=== PATIENT | male | born 1925 | race Caucasian/White ===

== ENCOUNTER 2016-06-25 20:26 | Inpatient (IN) | payer OTHER, MEDICARE ==
[~2016-06-25] VITALS: Ht 182.9 cm; Wt 68.1 kg
[~2016-06-25 20:26] MED LIST: ADULT LOW DOSE81 M1 PO; ADVIL200 MG PO; ANCEF,KEFZ1 GM/50 ML IV; ASPIR-LOW81 MG PO; CENTRAVITES 501 EACH PO; COLACE100 MG PO; COUMADIN5 MG PO; DOCUSATE SODIU100 MG PO; DUONEB 2.5-0.5 M3 ML PEP; FUROSEMIDE40 MG PO; Flomax PO; K-DUR20 MEQ PO; LIDOCAINE700 MG TD; LISINOPRIL10 MG PO; LOVENOX100 MG/1 M SC; Levothroid,Synthroid PO; MELATIN3 MG PO; MEN'S MULTI-VI1 EACH; MEN'S MULTI-VI1 EACH PO; MIDODRINE HCL5 MG PO; NORCO 5/3251 TABLET PO; OXYCODONE HCL5 MG PO; POLYETHYLENE GL17 GM PO; PRINIVIL10 MG PO; PROSCAR5 MG PO; SANTYL30 GM TP; SIMVASTATIN40 MG PO; SYNTHROID150 MCG PO; TRAMADOL HCL50 MG PO; TYLENOL REGULA325 MG PO; Tylenol Extra Streng PO; ULTRAM50 MG PO; VITAMIN D31000 UNI2 PO; Zestril,Prinivil PO
[2016-06-25 20:59] LABS: EOSINOPHIL (%) 2.3 % (0-5); EOSINOPHIL COUNT 0.2 K/uL (0-0.3); HEMATOCRIT 35.2 % (38.0-50.0); IMMATURE GRANULOCYTE (%) 0.5 % (0.0-0.7); IMMATURE GRANULOCYTE COUNT 0.1 K/uL; INSTRUMENT ABS NEUTROPHIL CT 7.6 K/uL; MCH 27.5 PG (29.0-34.0); MCHC 31.8 G/DL (30.0-36.0); MCV 86.5 FL (86-99); MEAN PLAT.VOLUME 9.1 uM^3 (9.0-12.4); MONOCYTE (%) 7.3 % (3-12); MONOCYTE COUNT 0.7 K/uL (0-0.8); NEUTROPHIL (%) 78.9 % (45-76); NEUTROPHIL COUNT 7.6 K/uL (1.8-6.4); PLATELET COUNT 310 K/uL (156-360); RBC DIS.WIDTH-CV 15.9 % (11.8-14.6); RBC DIS.WIDTH-SD 50.5 % (39-53); RED BLOOD COUNT 4.07 M/uL (4.00-5.50)
[2016-06-25 21:01] LABS: WHITE BLOOD COUNT 9.6 K/uL (4.1-10.2)
[2016-06-25 21:10] LABS: CHLORIDE 109 mEq/L (99-109); POTASSIUM 3.7 mEq/L (3.7-5.4); SODIUM 140 mEq/L (136-147)
[2016-06-25 21:13] LABS: GLUCOSE 111 mg/dL (70-99)
[2016-06-25 21:14] LABS: ANION GAP 11 MEQ/L (2-14); TOTAL BILIRUBIN 0.4 mg/dL (0.0-1.0)
[2016-06-25 21:16] LABS: ALKALINE PHOSPHATASE 93 IU/L (3-129); GFR ESTIMATE (CALCULATED) > 59 mL/min/
[2016-06-25 21:17] LABS: UREA NITROGEN (BUN) 20 mg/dL (9-23)
[2016-06-25 21:18] LABS: DIRECT BILIRUBIN 0.2 mg/dL (0.0-0.3)
[2016-06-25 21:18] LABS: INTER. NORMALIZED RATIO 2.6; PROTHROMBIN TIME 27.3 (9.2-11.2); PTT 46.7 (25-32)
[2016-06-25 21:19] LABS: TROP-I INTERPRETATION NEGATIVE; TROPONIN-I 0.01 ng/mL (0.0-0.30)
[2016-06-25 21:20] LABS: LIPASE 13 U/L (1.0-51.0)
[2016-06-26] MEDS ORDERED: SERTRALINE HCL100 MG PO (00:29)
[2016-06-26] MEDS ORDERED: MIRTAZAPINE15 MG PO (00:29)
[2016-06-26] MEDS ORDERED: ATORVASTATIN CA20 MG PO (00:29)
[2016-06-26] MEDS ORDERED: LEVO-T200 MCG PO (00:29)
[2016-06-26] MEDS ORDERED: LEVO-T25 MCG PO (00:30)
[2016-06-26] MEDS ORDERED: ASCORBIC ACID500 M3 PO (00:31)
[2016-06-26] MEDS ORDERED: TAMSULOSIN HCL0.4 MG PO (00:31)
[2016-06-26] MEDS ORDERED: DAILY VALUE1 EACH PO (00:31)
[2016-06-26] MEDS ORDERED: VITAMIN D31000 UNI2 PO (00:32)
[2016-06-26] MEDS ORDERED: FINASTERIDE5 MG PO (00:32)
[2016-06-26] MEDS ORDERED: PROTONIX40 MG PO (00:33)
[2016-06-26] MEDS ORDERED: FERROUS SULFAT325 MG PO (00:33)
[2016-06-26] MEDS ORDERED: FUROSEMIDE20 MG PO (00:33)
[2016-06-26] MEDS ORDERED: POTASSIUM CHLO20 ME1 PO (00:34)
[2016-06-26] MEDS ORDERED: MIDODRINE HCL5 MG PO (00:34)
[2016-06-26] MEDS ORDERED: COUMADIN4 MG PO (00:35)
[2016-06-26 02:50] VITALS: BP 100/53
[2016-06-26 06:35] LABS: INTER. NORMALIZED RATIO 2.2; PROTHROMBIN TIME 23.3 (9.2-11.2)
[2016-06-26 08:51] LABS: INTERNAL CONTROL VALID? YES
[2016-06-26 09:51] VITALS: BP 88/42
[2016-06-26 12:42] VITALS: BP 95/55
[2016-06-26 16:02] VITALS: BP 106/50
[2016-06-26 20:05] VITALS: BP 110/54
[2016-06-26 23:45] VITALS: BP 102/51
[2016-06-27 03:50] VITALS: BP 112/84
[2016-06-27 07:09] LABS: EOSINOPHIL (%) 7.2 % (0-5); EOSINOPHIL COUNT 0.5 K/uL (0-0.3); HEMATOCRIT 30.7 % (38.0-50.0); IMMATURE GRANULOCYTE (%) 0.4 % (0.0-0.7); INSTRUMENT ABS NEUTROPHIL CT 3.6 K/uL; LYMPHOCYTE COUNT 2.2 K/uL (1.0-2.8); MCH 27.5 PG (29.0-34.0); MCHC 30.9 G/DL (30.0-36.0); MCV 88.7 FL (86-99); MEAN PLAT.VOLUME 9.6 uM^3 (9.0-12.4); MONOCYTE (%) 10.3 % (3-12); MONOCYTE COUNT 0.7 K/uL (0-0.8); NEUTROPHIL COUNT 3.6 K/uL (1.8-6.4); PLATELET COUNT 262 K/uL (156-360); RBC DIS.WIDTH-CV 15.9 % (11.8-14.6); RBC DIS.WIDTH-SD 51.8 % (39-53); RED BLOOD COUNT 3.46 M/uL (4.00-5.50); WHITE BLOOD COUNT 7.1 K/uL (4.1-10.2)
[2016-06-27 07:16] LABS: PROTHROMBIN TIME 21.1 (9.2-11.2)
[2016-06-27 07:28] LABS: ANION GAP 8 MEQ/L (2-14); CHLORIDE 107 MEQ/L (99-109); GFR ESTIMATE (CALCULATED) > 59 mL/min/; GLUCOSE 82 mg/dL (70-99); POTASSIUM 3.8 MEQ/L (3.7-5.4); SAMPLE HEMOLYSIS CHECK 0; SAMPLE ICTERIC CHECK 0; SAMPLE LIPEMIA CHECK 0; SODIUM 140 MEQ/L (136-147); UREA NITROGEN (BUN) 22 mg/dL (9-23)
[2016-06-27 07:50] VITALS: BP 116/57
[2016-06-27 11:45] VITALS: BP 102/56
[2016-06-27] MEDS ORDERED: FLORASTOR250 MG PO (14:04)
[2016-06-27] MEDS ORDERED: CEFDINIR300 MG PO (14:06)
== END 2016-06-27 15:58 | disposition home or self-care (01) | DRG 193 ==
LOC: EME 20:26 → 5SOUTH 06-26 → EDOF 06-26 → 5SOUTH 06-26 02:30
PROVIDERS: Emergency Medicine; Hospitalist; Internal Medicine
DX: J18.9 Pneumonia, unspecified organism (principal); J96.01 Acute respiratory failure with hypoxia; J90 Pleural effusion, not elsewhere classified; I48.0 Paroxysmal atrial fibrillation; I48.91 Unspecified atrial fibrillation; N18.2 Chronic kidney disease, stage 2 (mild); I13.0 Hypertensive heart and chronic kidney disease with heart failure and stage 1 through stage 4 chronic kidney disease, or unspecified chronic kidney disease; R11.2 Nausea with vomiting, unspecified; R05 Cough; M48.56XA Collapsed vertebra, not elsewhere classified, lumbar region, initial encounter for fracture; I50.22 Chronic systolic (congestive) heart failure; I25.10 Atherosclerotic heart disease of native coronary artery without angina pectoris; E78.5 Hyperlipidemia, unspecified; N40.0 Benign prostatic hyperplasia without lower urinary tract symptoms; Z79.01 Long term (current) use of anticoagulants; Z95.1 Presence of aortocoronary bypass graft; Z86.718 Personal history of other venous thrombosis and embolism; Z89.9 Acquired absence of limb, unspecified; Z96.89 Presence of other specified functional implants
CPT/HCPCS: 71010; 71250; 80048; 80076; 83605; 83690; 84484; 85025; 85610; 85730; 86900; 86901; 87040; 87070; 87205; 87449; 92610 GN; 93005; 93306; 94640; 94799; 99202; 99281; 99284; J0456; J0692; J2405; J7030; J7050